=== PATIENT | female | born 1965 | race Caucasian/White ===

== ENCOUNTER 2019-04-03 13:18 | Emergency (ER) | payer MEDICARE, MEDICAID ==
[~2019-04-03] VITALS: Ht 162.6 cm; Wt 51.4 kg
[2019-04-03 13:21] VITALS: Ht 162.6 cm; Wt 51.4 kg
[2019-04-03] MEDS ORDERED: PROTONIX40 MG PO (13:24)
[2019-04-03] MEDS ORDERED: LEVOXYL50 MCG PO (13:24)
[2019-04-03] MEDS ORDERED: CELEXA40 MG PO (13:24)
[2019-04-03] MEDS ORDERED: HYDROCODON-ACET15 ML PO (13:24)
[2019-04-03] MEDS ORDERED: BACLOFEN10 MG PO (13:25)
[2019-04-03 14:45] VITALS: BP 130/71
[2019-04-04] MEDS ORDERED: DURICEF500 MG PO (13:32)
[2019-04-04] MEDS ORDERED: PERCOCET 10-321 EAC1 PO (13:32)
[2019-05-12] MEDS ORDERED: HYDROCODON-ACE1 EAC7 PO (11:29)
[2019-05-12] MEDS ORDERED: ALBUTEROL SULF8.5 GM INH (11:30)
== END 2019-04-03 14:46 | disposition home or self-care (01) ==
LOC: D.ER 13:18
DX: S42.001A Fracture of unspecified part of right clavicle, initial encounter for closed fracture (principal); W19.XXXA Unspecified fall, initial encounter; S01.81XA Laceration without foreign body of other part of head, initial encounter

== ENCOUNTER 2019-04-04 09:00 | Day surgery (SDC) | payer MEDICARE, MEDICAID ==
[~2019-04-04] VITALS: Ht 162.6 cm; Wt 50.8 kg
[~2019-04-04 09:00] MED LIST: BACLOFEN10 MG PO; CELEXA40 MG PO; HYDROCODON-ACET15 ML PO; LEVOXYL50 MCG PO; PROTONIX40 MG PO
[2019-04-04 10:14] LABS: HEMATOCRIT 44.3 % (36.0-48.0); HEMOGLOBIN 14.6 g/dL (12-16); MCH 32.3 pg (26.0-34.0); MEAN PLATELET VOLUME 10.2 fL (7.4-10.4); RBC 4.52 10x6/uL (4.00-5.40); RDW 12.9 % (11.5-14.5)
[2019-04-04 10:39] VITALS: BP 139/91; Ht 162.6 cm; Wt 50.8 kg
[2019-04-04 10:55] LABS: HCG URINE NEGATIVE (NEGATIVE)
[2019-04-04] MEDS ORDERED: DURICEF500 MG PO (13:32)
[2019-04-04] MEDS ORDERED: PERCOCET 10-321 EAC1 PO (13:32)
--- NOTE | 2019-04-04 15:46 | OP ---
PATIENT NAME: AQUILES SHELTON MEDICAL RECORD: [id number] :63 LOCATION:[facility] ADMISSION DATE: SURGEON: JONATHAN MAR DO DATE OF OPERATION: 04/04/2019 PROCEDURE PERFORMED: Right clavicle open reduction and internal fixation. PREOPERATIVE DIAGNOSIS: Displaced closed right clavicle fracture. POSTOPERATIVE DIAGNOSIS: Displaced closed right clavicle fracture. INDICATIONS: Ms. Shelton is a 53-year-old female who fell down the steps yesterday. She was cleaning out her apartment and sustained a right displaced clavicle fracture, shortened as well, more than 2 cm. She was seen in the ER and set up for surgery today. She is aware of the risks including nonunion, malunion, failure of fixation, need for further surgery, dehiscence of the wound due to her smoking and wound complications, infection and other complications including damage to nerves in the area, numbness over the incision site and she is aware of those risks and signed the consent. SURGEON: Jonathan Mar DO DESCRIPTION OF PROCEDURE: The patient received a block by anesthesia in the preoperative area, given a gram of Ancef preoperatively and was taken to the operative suite, sedated and LMA was placed. She was then placed in beach chair position. The right shoulder was then prepped and draped in sterile fashion. Timeout was performed and everyone was in agreement of the correct side, site, patient and procedure. Incision then began over the anterior clavicle. Careful dissection was made down through the skin to the platysma and platysma was removed directly off the bone. The plate was then placed medially, a 6-hole Acumed plate. The plate was then screwed to the bone medially and then the reduction was made laterally to the plate. Having a very nice reduction and then the screws were placed in a compression like technique on either side of the fracture site through the plate and then a locking screw was placed most medially and 2 more cortical screws were placed laterally. She was then thoroughly irrigated. X-ray was taken and seen to be in good position and good reduction. The platysma was then closed with 0 Vicryl in a simple fashion and then 2-0 Vicryl in inverted interrupted fashion of the skin and 4-0 Monocryl ran on the skin and Prineo glue placed on the skin. She was then awakened and taken to recovery in stable condition. BLOOD LOSS: Approximately 20 mL. COMPLICATIONS: None. TRANSINT:[id number] Voice Confirmation ID: [id number] DOCUMENT ID: [id number] OPERATIVE REPORT [id number] AQUILES SHELTON MICHAEL D, DO at 1546 CC: [id number] DICTATION DATE: 04/04/19 1331 [employer]: 04/04/19 15[id number] [place] [address]
--- NOTE | 2019-04-04 16:45 | NUR ---
PATIENT'S BROTHER ARRIVES TO PROVIDE TRANSPORTATION, PATIENT AMBULATING AROUND ROOM WITHOUT UNSTEADINESS OR DIZZINES. LEFT FOREARM PIV DC'D WITH TIP INTACT. ASSISTED PATIENT TO DRESS IN PERSONAL CLOTHING, LEAVING ARM SLING IN PLACE AND IN GOOD POSITION TO RIGHT UPPER EXT. DISCHARGE INSTRUCTIONS REVIEWED WITH PATIENT AND BROTHER, PATIENT DISCHARGED HOME AT 1650
[2019-05-12] MEDS ORDERED: HYDROCODON-ACE1 EAC7 PO (11:29)
[2019-05-12] MEDS ORDERED: ALBUTEROL SULF8.5 GM INH (11:30)
== END 2019-04-04 16:50 | disposition home or self-care (01) ==
LOC: D.OPS 09:00
PROVIDERS: Anesthesiology; ATTEND Orthopaedic Surgery
DX: S42.001A Fracture of unspecified part of right clavicle, initial encounter for closed fracture (principal); X58.XXXA Exposure to other specified factors, initial encounter

== ENCOUNTER 2019-05-13 09:04 | Day surgery (SDC) | payer MEDICARE, MEDICAID ==
[~2019-05-13] VITALS: Ht 162.6 cm; Wt 55.8 kg
[~2019-05-13 09:04] MED LIST changes: +ALBUTEROL SULF8.5 GM INH; +DURICEF500 MG PO; +HYDROCODON-ACE1 EAC7 PO; +PERCOCET 10-321 EAC1 PO
[2019-05-13 09:37] LABS: HEMATOCRIT 43.1 % (36.0-48.0); HEMOGLOBIN 14.5 g/dL (12-16); MCHC 33.6 g/dL (31.0-37.0); MEAN PLATELET VOLUME 9.8 fL (7.4-10.4); RBC 4.4 10x6/uL (4.00-5.40); RDW 12.6 % (11.5-14.5); WBC 8.2 10x3/uL (4.8-10.8)
[2019-05-13 10:41] VITALS: BP 172/71; Ht 162.6 cm; Wt 55.8 kg
--- NOTE | 2019-05-13 16:47 | NUR ---
PLASMA BLADE USED. GROUNDING PAD LOT #[id number] EXP. 02/16/2021
[2019-05-13] MEDS ORDERED: PERCOCET 10-321 EAC1 PO (17:41)
[2019-05-13] MEDS ORDERED: ZOFRAN ODT4 MG/UDTAB PO (17:41)
[2019-05-13] MEDS ORDERED: VISTARIL50 MG PO (17:41)
--- NOTE | 2019-05-14 08:47 | OP ---
PATIENT NAME: AQUILES SHELTON MEDICAL RECORD: [id number] :63 LOCATION:[facility] ADMISSION DATE: SURGEON: TRAE MAR DO DATE OF OPERATION: 05/13/2019 PROCEDURE PERFORMED: Revision right clavicle open reduction internal fixation. PREOPERATIVE DIAGNOSIS: Failed open reduction internal fixation of the right clavicle. POSTOPERATIVE DIAGNOSIS: Failed open reduction internal fixation of the right clavicle. INDICATIONS: Ms. Shelton is a 53-year-old female who approximately 5-1/2 weeks ago underwent open reduction internal fixation for midshaft clavicle fracture. She did not follow the instructions following the procedure and she lifted and used the arm as if she did not have a fracture and she fell also and the plate on the lateral aspect when the screws came out and the plate was raised up off the clavicle and the reduction was lost in the fracture site. She came in to the office and continued complaint of pain. I told her that I could not have her not following the instructions of no lifting and keeping that arm in sling. She would have to abide by the rules this time for me to fix that. She indicated that she would and I told her that I would fix it and she was aware of other risks including infection, continued pain, further fracture, damage to nerves or vessels in the area as well as the restrictions of no lifting for 6 weeks and sling for approximately 3 weeks. She signed the consent. SURGEON: Trae Mar DO DESCRIPTION TO THE PROCEDURE: The patient received a block by anesthesia in the preoperative area, was given 900 mg of clindamycin preoperatively, taken to the operative suite, laid in supine position, sedated and intubated. The right clavicle and arm were then prepped and draped in sterile fashion. A timeout was performed. Everyone was agreeance with correct side, site, patient and procedure. Then, the incision was made over the prior wound. Careful dissection was made down to the clavicle and the fascia of the clavicle and periosteum was elevated. The old plate and screws were removed and reduction was made and anterior plate was put on as the superior endplate was put on prior. Anterior plate was then put on with 8 holes, 3 of them being locked, 3 locking screws, 2 on the medial side and one on the lateral side and then 2 compression screws on the lateral side and one on the medial side, spanning the fracture site well. The x-rays were taken and the screws were in adequate position. Any bleeding was then coagulated and the site was irrigated. The fascia and what periosteum she had left was closed over the plate with 2-0 Vicryl in a [id number] fashion. Then, 3-0 Vicryl to close the skin in inverted interrupted fashion, 4-0 Monocryl running on the skin. Prineo glue was placed on the skin and then dressed with Telfa and Tegaderm. She was then awakened and taken to recovery in stable condition. Blood loss was approximately 100 mL. COMPLICATIONS: None. I was assisted by Abhijeet Woods, certified surgical architectural administrative assistant. He assisted with closing and passing instruments as well as retracting. OPERATIVE REPORT [id number] CATAAQUILES LEE TRANSINT:[id number] Voice Confirmation ID: [id number] DOCUMENT ID: [id number] TRAE MAR DO at 0847 CC: [id number] DICTATION DATE: 05/13/191739 [employer]: 05/13/19 2256 [facility] 05/13/19 [facility] [address] [place] [address]
== END 2019-05-13 19:12 | disposition home or self-care (01) ==
LOC: D.OPS 09:04 → D.PAN 11:30 → D.OPS 11:30
PROVIDERS: Anesthesiology; ATTEND Orthopaedic Surgery
DX: S42.021B Displaced fracture of shaft of right clavicle, initial encounter for open fracture (principal)

== ENCOUNTER 2019-09-09 09:14 | Day surgery (SDC) | payer MEDICARE, MEDICAID ==
[~2019-09-09] VITALS: Ht 162.6 cm; Wt 56.7 kg
[~2019-09-09 09:14] MED LIST changes: +HYDROCODON-ACE1 EA10 PO; +VISTARIL50 MG PO; +XANAX1 MG PO; +ZOFRAN ODT4 MG/UDTAB PO
[2019-09-09 09:35] LABS: HEMATOCRIT 41.7 % (36.0-48.0); HEMOGLOBIN 13.8 g/dL (12-16); MCH 32.2 pg (26.0-34.0); MCHC 33.1 g/dL (31.0-37.0); MCV 97.2 fL (80.0-100.0); MEAN PLATELET VOLUME 9.8 fL (7.4-10.4); RBC 4.29 10x6/uL (4.00-5.40); RDW 12.5 % (11.5-14.5); WBC 11.3 10x3/uL (4.8-10.8)
[2019-09-09] MEDS ORDERED: PROTONIX40 MG PO (10:05)
[2019-09-09 10:23] VITALS: BP 125/57; Ht 162.6 cm; Wt 56.7 kg
--- NOTE | 2019-09-09 10:45 | NUR ---
1043 DR MAR NOTIFIED OF PT'S WBC 11.3. NO ORDERS RECEIVED.
[2019-09-09] MEDS ORDERED: HYDROCODON-ACE1 EA10 PO (12:31)
--- NOTE | 2019-09-09 14:31 | NUR ---
1410 IV REMOVED AND PRESSURE HELD 1430 PT D/C HOME WTIH INSTRUCTIONS
--- NOTE | 2019-09-10 08:36 | OP ---
PATIENT NAME: AQUILES SHELTON MEDICAL RECORD: [id number] :63 LOCATION:[facility] ADMISSION DATE: SURGEON: TRAE MAR DO DATE OF OPERATION: 09/09/2019 PROCEDURE PERFORMED: Removal of bone spur from the right clavicle. PREOPERATIVE DIAGNOSIS: Painful hardware, right clavicle. POSTOPERATIVE DIAGNOSIS: Painful symptomatic bone spur of the right clavicle. INDICATIONS: Ms. Shelton is a 54-year-old female who had had ORIF of the clavicle, some months ago, that hardware failed and then put a new anterior plate on. She has been doing well since, but in the last few months, what we thought was a screw was backing out, appeared to be where one of the screws were along the incision, that was a hard piece poking on her scan. She said it was very painful with wearing any kind of clothing or anything rubbing on and it was hard to the touch. It appeared to be right over the screw and thought it was maybe one of the screws backing out due to the last plate and screws that did not hold in her bone thought maybe that was the case. I told her we could take it out and should be asymptomatic. She was okay with that and aware of the risks including infection, bleeding, damage to nerves or vessels in the area, need for further surgery, and continued pain. She signed the consent. SURGEON: Trae Mar DO DESCRIPTION OF PROCEDURE: The patient was taken to the operative suite, laid in supine position, given 2 grams of Ancef preoperatively, and sedated and LMA was placed. A timeout was performed and everyone was in agreement with the correct side, site, patient and procedure. We then prepped just over the right clavicle and after the timeout had been performed, an incision was made right over the hard piece that was protruding off of the clavicle. Upon dissecting down to it, it appeared to be a bone spur that had grown off the fracture site and indeed was not a screw. This was confirmed on x-ray, tilting which way and I used a rongeur and took the bone spur off, it was then gone. There was no other prominence noted on the skin. Then, Abhijeet Woods, certified sales assistant entertainment and media who was my assist in the case, I anesthetized the area with 0.25% Marcaine with epinephrine, approximately 5 mL around the incision and then closed it with 4-0 Monocryl in inverted interrupted fashion and put a Prineo glue on it . She was then dressed with Telfa and Tegaderm. Awakened and taken to recovery in stable condition. BLOOD LOSS: Minimal. COMPLICATION: None. TRANSINT:[id number] Voice Confirmation ID: [id number] DOCUMENT ID: [id number] OPERATIVE REPORT [id number] AQUILES SHELTON MICHAEL D, DO at 0836 CC: [id number] DICTATION DATE: 09/09/19 1237 [employer] OPERATOR: 09/09/19 1539 [facility] 09/09/19 [facility] [address] [place] [address]
== END 2019-09-09 14:32 | disposition home or self-care (01) ==
LOC: D.OPS 09:14 → D.PAN 11:30 → D.OPS 11:30
PROVIDERS: Anesthesiology; ATTEND Orthopaedic Surgery
DX: T84.84XA Pain due to internal orthopedic prosthetic devices, implants and grafts, initial encounter (principal); S42.001D Fracture of unspecified part of right clavicle, subsequent encounter for fracture with routine healing; M25.711 Osteophyte, right shoulder

== ENCOUNTER 2020-02-20 05:31 | Day surgery (SDC) | payer MEDICARE, MEDICAID ==
[~2020-02-20] VITALS: Ht 162.6 cm; Wt 59.9 kg
[2020-02-20 05:53] LABS: HEMOGLOBIN 13.1 g/dL (12-16); MCH 31.8 pg (26.0-34.0); MCHC 32.8 g/dL (31.0-37.0); MCV 97.1 fL (80.0-100.0); MEAN PLATELET VOLUME 10.1 fL (7.4-10.4); RBC 4.12 10x6/uL (4.00-5.40); RDW 12.3 % (11.5-14.5); WBC 7.7 10x3/uL (4.8-10.8)
[2020-02-20 06:08] LABS: ALBUMIN 3.2 g/dL (3.4-5.0); ALKALINE PHOSPHATASE 77 U/L (30-120); ALT (SGPT) 21 U/L (10-68); BILIRUBIN - TOTAL 0.25 mg/dL (0.2-1.3); CALC OSMOLALITY 272 mosm/kg (275-300); CALCIUM 8.6 mg/dL (8.5-10.1); CARBON DIOXIDE 29.3 mmol/L (21.0-32.0); CHLORIDE - SERUM 104 mmol/L (98-107); CREATININE - SERUM 0.6 mg/dL (0.6-1.3); GLUCOSE 94 mg/dL (74-106); POTASSIUM - SERUM 3.9 mmol/L (3.5-5.1); PROTEIN - SERUM 6.7 g/dL (6.4-8.2); SODIUM 138 mmol/L (136-145); UREA NITROGEN 5 mg/dL (7-18); eGFR NON AFRICAN AMERICAN > 90 mL/min (90-120)
[2020-02-20 06:38] VITALS: BP 111/64; Ht 162.6 cm; Wt 59.9 kg
--- NOTE | 2020-02-20 08:41 | NUR ---
0830 DESCRIBES DISCOMFORT A BURNING SENSATION IN FINGERTIPS AND RATES IT A 6 OUT OF 10
--- NOTE | 2020-02-20 09:27 | NUR ---
0915 ANTIBIOTIC WAS INSIDE CHART AND WAS NOT GIVEN IN OR. NOTIFIED MARK MAR AND JAYJAY. RECEIVED ORDER TO GIVE ABX BEFORE PT IS DISCHARDED HOME.
--- NOTE | 2020-02-20 10:53 | NUR ---
1005 IV DC'D. CATHETER TIP INTACT. NO BLEEDING NOTED. BANDAID APPLIED. PT DENIES ANY ITCHING OR RASH AFTER RECEIVING ABX AND STATES SHE IS READY TO GO HOME
--- NOTE | 2020-02-20 10:57 | NUR ---
1015 PT VOICES UNDERSTANDING OF DISCHARGE INSTRUCTIONS THAT WAS REVIEWED WITH HER AND HER SISTER EARLIER. HER SISTER HAS THE DISCHARGE PACKET.
--- NOTE | 2020-02-20 14:05 | OP ---
PATIENT NAME: AQUILES SHELTON MEDICAL RECORD: [id number] :63 LOCATION:[facility] ADMISSION DATE: SURGEON: TRAE MAR DO DATE OF OPERATION: 02/20/2020 PROCEDURE PERFORMED: Right endoscopic carpal tunnel release. PREOPERATIVE DIAGNOSIS: Right carpal tunnel syndrome. POSTOPERATIVE DIAGNOSIS: Right carpal tunnel syndrome. INDICATIONS: Ms. Shelton is a 54-year-old female who has had carpal tunnel syndrome for quite some time. She is tired of dealing with the numbness and tingling, waking her up at night. She had a nerve conduction study showing severe carpal tunnel. I informed her of the risks including damage of the median nerve, continued pain, numbness and tingling due to the compression on it, she may not get all the feeling back, but the pain should resolve, infection and bleeding as well. She was aware of all that and signed the consent. SURGEON: Trae Mar DO DESCRIPTION OF PROCEDURE: The patient was taken to the operative suite, laid in supine position, given general anesthetic, given a gram of Ancef preoperatively. The right upper extremity was prepped and draped in sterile fashion. Time-out was performed. Everyone was in agreeance with the correct side, site, patient and procedure. We then exsanguinated the right upper extremity with an Esmarch, tourniquet was inflated to 250 mmHg and it was up for 11 minutes. I made an incision on the volar wrist, just ulnar to the palmaris longus tendon and used Kayode after going through the skin with a 15-blade scalpel, bluntly down to the carpal tunnel. I then released the fascia from distal to proximal and then put the dilators in the carpal tunnel and put in the sheath. She does have some fatty tissue, which was removed out of the way and then cleaned off the transverse carpal ligament with a rasp and a probe and then brought in the blade and raised it up and transected the transverse carpal ligament. That herniated down into the carpal tunnel, indicating good release. I then used a Ragnell and scissors, and under loupe magnification looked in the carpal tunnel and under direct visualization and ensured there were no fibers remaining of the transcarpal ligament, opening up the transverse carpal ligament and indicating there was a complete release. I then injected the site with 0.25% Marcaine with epinephrine 9 mL of it around the area. Tourniquet was then let down and it was closed with 5-0 Monocryl in inverted interrupted fashion by myself and Niels Lopez, certified surgical hr assistant student. She was then dressed with Dermabond, Adaptic, 4 x 4's, Kerlix, and Rakan wrap. She was awakened and taken to recovery in stable condition. BLOOD LOSS: Minimal. COMPLICATIONS: None. TRANSINT:[id number] Voice Confirmation ID: [id number] DOCUMENT ID: [id number] OPERATIVE REPORT [id number] AQUILES SHELTON,TRAE Quiñones DO at 1405 CC: [id number] DICTATION DATE: 02/20/20828 [employer]: 02/20/20 0850 [facility] 02/20/20 [id number] [place] [address]
== END 2020-02-20 10:15 | disposition home or self-care (01) ==
LOC: D.OPS 05:31 → D.PAN 07:00 → D.OPS 10:15
PROVIDERS: Anesthesiology; ATTEND Orthopaedic Surgery
DX: G56.01 Carpal tunnel syndrome, right upper limb (principal); I25.10 Atherosclerotic heart disease of native coronary artery without angina pectoris; J44.9 Chronic obstructive pulmonary disease, unspecified; K21.9 Gastro-esophageal reflux disease without esophagitis; S42.001D Fracture of unspecified part of right clavicle, subsequent encounter for fracture with routine healing; X58.XXXD Exposure to other specified factors, subsequent encounter